=== PATIENT | male | born 1970 | race Caucasian/White ===

== ENCOUNTER 2016-12-31 03:53 | Inpatient (IN) | payer OTHER ==
[2016-06-07 11:56] VITALS: Ht 177.8 cm; Wt 104.3 kg
[~2016-12-31] VITALS: Ht 177.8 cm; Wt 104.3 kg
[2016-12-31 03:53] VITALS: BP 192/107; PULSE 72; RESP 13; TEMP 98.2; O2SAT 99
[~2016-12-31 03:53] MED LIST: AMLO10TA88 PO; FOLI-43 PO; GABA300S PO; LISI-600 PO; VITA1TAB25 PO
--- NOTE | 2016-12-31 03:53 | NUR ---
Placed in room 7 . Placed on manager personnel selection, blood pressure machine and pulse oximeter. To gown for exam. Side rails up. Report given to GERARDO Brennan.
--- NOTE | 2016-12-31 03:55 | NUR ---
Patient AAO x4, sitting in bed, c/o shortness of breath x 1 day and swelling and pain to left arm 01/14. Patient denies N/V/D. Denies chest pain. Patient is a dialysis patient, shunt present on Left arm, thrill and brui present. No acute distress noted. Will continue to monitor.
--- NOTE | 2016-12-31 04:00 | NUR ---
ER Dr. Klein at bedside examining patient.
[2016-12-31] MEDS ORDERED: MORPHINE 2 MG/ML INJ. SYRINGE IVP ONE (04:30)
[2016-12-31 04:32] LABS: BASOPHILS # (AUTO) 0.1 K/uL (0.0-0.2); BASOPHILS % (AUTO) 1.1 % (0.0-2.0); EOSINOPHILS # (AUTO) 0.4 K/uL (0.0-0.4); EOSINOPHILS % (AUTO) 7.2 % (0.0-4.0); HEMATOCRIT 30.3 % (36-54); HEMOGLOBIN 9.9 g/dL (14.0-18.0); LYMPHOCYTES # (AUTO) 0.9 K/uL (1.0-5.5); LYMPHOCYTES % (AUTO) 14.3 % (20.5-51.5); MEAN CORPUSCULAR HEMOGLOBIN 31 pg (27-31); MEAN CORPUSCULAR HGB CONC 33 % (32-36); MEAN CORPUSCULAR VOLUME 95 fL (79.0-98.0); MONOCYTES # (AUTO) 0.5 K/uL (0.0-1.0); MONOCYTES % (AUTO) 8.6 % (1.7-9.3); NEUTROPHILS # (AUTO) 4.1 K/uL (1.8-7.7); NEUTROPHILS % (AUTO) 68.8 % (40.0-70.0); PLATELET COUNT (AUTO) 161 K/uL (130-430); RED BLOOD CELL COUNT(AUTO) 3.19 MIL/uL (4.2-6.2); RED CELL DISTRIBUTION WIDTH 16.2 % (9.0-15.0)
[2016-12-31 04:42] LABS: CALCIUM 8.6 mg/dL (8.4-11.0); POTASSIUM 5.2 mmol/L (3.5-5.1)
[2016-12-31 04:46] LABS: INR 1.1 (0.80-1.20)
[2016-12-31 05:03] LABS: ALBUMIN 2.9 g/dL (3.4-4.8); TOTAL BILIRUBIN 0.5 mg/dL (0.0-1.0); TOTAL PROTEIN, SERUM 7.1 g/dL (6.4-8.3)
--- NOTE | 2016-12-31 05:15 | NUR ---
Patient asked about home medications, unable to identify if medications on medication list is correct stating, "That sounds right, I don't really remember the names." Medication reconciliation list not updated at this time. Md aware.
--- NOTE | 2016-12-31 05:20 | NUR ---
Patient to ultrasound via wheelchair.
--- NOTE | 2016-12-31 05:45 | NUR ---
Consultation Paged (Routine) Reason for consultation: CHF Was consult called: Yes Person who was notified: Marjorie Consulting Physician: Dr Kwong Wet Process Miller Specialty: Billing Representative Ordered By: Dr Swenson
--- NOTE | 2016-12-31 05:50 | NUR ---
PATIENT RETURNED FROM ULTRASOUND.
--- NOTE | 2016-12-31 05:51 | NUR ---
Consultation Paged (Routine) Reason for consultation: CHF Was consult called: Yes Person who was notified: Michael Consulting Physician: Wilfrido Lea; Ann Lea is on-call Pharmacy Sales Assistant Specialty: Nephrology Pharmacy Sales Assistant Ordered By: Dr Swenson
--- NOTE | 2016-12-31 06:05 | NUR ---
Patient will be admitted to care of Dr. Swenson. Admitted to Tele unit. Will go to room 108. Belongings list completed. Summary report printed. Report will be given at bedside.
--- NOTE | 2016-12-31 06:20 | NUR ---
Admission Pt was recvd from ER. a/a/o x4. No s/s of any pain noted. B/P is 192/119,no thing given in ER as per Anu ER nurse. IV noted to R hand G 20, no infiltrate and with good blood return. All extremities are strong and with good blood return. [place] pt to unit and call light. Discussed plan of care with and verbalized understanding.
[2016-12-31 06:22] LABS: BLOOD GAS PH 7.453 (7.350-7.450)
--- NOTE | 2016-12-31 06:22 | NUR ---
Paged paged for Dr Swenson, dialed . picked up call.
[2016-12-31 06:23] LABS: ABG TOTAL HEMOGLOBIN 11.1 G/dL (12.0-18.0); BLOOD GAS BASE EXCESS 3.5 mmol/L (-3.0-3.0); BLOOD GAS COHb% 2.3 % (0.5-1.5); BLOOD GAS HHB 5.9 % (0.0-6.0); BLOOD O2Hb% 91.5 % (94.0-97.0)
[2016-12-31] MEDS ORDERED: cloNIDine HCL 0.1 MG TABLET PO PRN (06:30)
[2016-12-31] MEDS ORDERED: cloNIDine HCL 0.1 MG TABLET ONE (06:38)
[2016-12-31] MEDS ORDERED: MORPHINE 2 MG/ML INJ. SYRINGE IVP PRN (06:45)
[2016-12-31] MEDS ORDERED: ZOLPIDEM TARTRATE 5 MG TABLET PO PRN (06:45)
[2016-12-31] MEDS ORDERED: ONDANSETRON HCL 4 MG/2 ML VIAL IVP PRN (06:45)
[2016-12-31] MEDS ORDERED: LORazepam 2 MG/ML VIAL IVP PRN (06:45)
[2016-12-31] MEDS ORDERED: ACETAMINOPHEN 325 MG TABLET PO PRN (06:45)
[2016-12-31] MEDS ORDERED: MAGNESIUM SULFATE 50 ML IV PRN (06:45)
[2016-12-31] MEDS ORDERED: POTASSIUM CHLORIDE 10 MEQ TAB.PRT.SR PO PRN (06:45)
[2016-12-31] MEDS ORDERED: DOCUSATE SODIUM 100 MG CAPSULE PO PRN (06:45)
[2016-12-31 08:30] VITALS: BP 173/107; PULSE 74; RESP 18; TEMP 97.3; O2SAT 96
--- NOTE | 2016-12-31 08:51 | NUR ---
GOT A CALL FROM THE INSURANCE AND WAS INFORMED THAT PT IS OUT OF NETWORK. REQUESTED THAT DR QUIROGA, THE ATTENDING MD SHOULD CALL [facility] FOR PLACEMENT. SPOKE TO SHERRY
[2016-12-31] MEDS ORDERED: FOLIC ACID 1 MG TABLET PO SCH (09:00)
[2016-12-31] MEDS ORDERED: amLODIPine BESYLATE 10 MG TABLET PO SCH (09:00)
[2016-12-31] MEDS ORDERED: HEPARIN SODIUM,PORCINE 5000 UNITS/ML VIAL SUBCUT SCH (09:00)
[2016-12-31] MEDS: LISINOPRIL 20 MG TABLET PO SCH ×2 (09:17→09:22)
--- NOTE | 2016-12-31 10:30 | NUR ---
Call from Doctor Nikita to round and decide for dialysis today versus another day for dialysis.
[2016-12-31] MEDS ORDERED: CARVEDILOL 6.25 MG TABLET (COREG) PO ONE (11:30)
[2016-12-31 11:48] VITALS: BP 164/108; PULSE 62
--- NOTE | 2016-12-31 12:07 | NUR ---
Rounds to patient. Given scheduled med for blood pressure 157 / 108. Patient improving systolic blood pressure.
[2016-12-31 14:18] VITALS: BP 143/92; PULSE 65
--- NOTE | 2016-12-31 14:19 | NUR ---
Recheck on patient blood pressure. 143/92. Patient says arm feels like its not in use and therefore he is having swelling. Shoulder appears weak in the joint with movement.
[2016-12-31 15:05] VITALS: BP 155/102; PULSE 64; RESP 16; TEMP 97.7; O2SAT 95
--- NOTE | 2016-12-31 15:59 | NUR ---
D/C Patient Patient given medication reconciliation form and D/C instructions. Exit Care provided. Patient verbalized understanding. MD discussed with patient the results and treatment provided. Ambulatory with steady gait for discharge to home. Patient in stable condition, ID band removed. IV catheter removed, intact and dressing applied, no active bleeding. Rx reconciliation given. Patient educated on pain management. All belongings sent with patient. Patient given xray for follow up with primary md regarding shoulder.
[2016-12-31] MEDS ORDERED: GABAPENTIN 300 MG CAPSULE PO SCH (21:00)
[2016-12-31] MEDS ORDERED: CARVEDILOL 6.25 MG TABLET (COREG) PO SCH (21:00)
--- NOTE | 2017-01-04 16:12 | NUR ---
Discharge Follow Up Phone Call: [facility] called and spoke with pt ([phone]). Pt states that he is doing well; there are no questions regarding discharge or medication instructions; pt has been going to dialysis; pt has a PCP follow up appointment scheduled for next week. Pt did not express any other needs or concerns and denied the need for additional follow up at this time. No further follow up phone calls required at this time.
== END 2016-12-31 16:08 | disposition home or self-care (01) | DRG 291 ==
LOC: SED 03:53 → STU 05:31
PROVIDERS: ADMIT General Practice; ATTEND General Practice
DX: I13.2 Hypertensive heart and chronic kidney disease with heart failure and with stage 5 chronic kidney disease, or end stage renal disease (principal); N17.0 Acute kidney failure with tubular necrosis; I50.43 Acute on chronic combined systolic (congestive) and diastolic (congestive) heart failure; N18.6 End stage renal disease; E46 Unspecified protein-calorie malnutrition; R18.8 Other ascites; Z99.2 Dependence on renal dialysis; F17.210 Nicotine dependence, cigarettes, uncomplicated; D63.8 Anemia in other chronic diseases classified elsewhere; E78.5 Hyperlipidemia, unspecified; E66.9 Obesity, unspecified; E87.5 Hyperkalemia; S43.402A Unspecified sprain of left shoulder joint, initial encounter; X58.XXXA Exposure to other specified factors, initial encounter; Y93.89 Activity, other specified; Y92.89 Other specified places as the place of occurrence of the external cause; Y99.8 Other external cause status; Z79.899 Other long term (current) drug therapy; Z68.33 Body mass index [BMI] 33.0-33.9, adult
CPT/HCPCS: 36415; 36600; 71010; 72040-TC; 73030; 80053; 82803-TC; 83880; 84484; 85025; 85379; 85610-TC; 87081; 93005; 93971; 96374; 99285; J1644; J2270

== ENCOUNTER 2017-02-02 00:49 | Emergency (ER) | payer OTHER ==
[~2017-02-02] VITALS: Ht 177.8 cm; Wt 99.8 kg
[2017-02-02 01:00] VITALS: BP_SYST 199
[2017-02-02] MEDS ORDERED: hydrALAZINE HCL 20 MG/ML VIAL IVP ONE ×2 (02:00→03:45)
[2017-02-02 03:27] LABS: BASOPHILS % (AUTO) 0.9 % (0.0-2.0); EOSINOPHILS # (AUTO) 0.5 K/uL (0.0-0.4); EOSINOPHILS % (AUTO) 8.8 % (0.0-4.0); HEMATOCRIT 31.3 % (36-54); HEMOGLOBIN 10.3 g/dL (14.0-18.0); LYMPHOCYTES # (AUTO) 0.8 K/uL (1.0-5.5); LYMPHOCYTES % (AUTO) 14.3 % (20.5-51.5); MEAN CORPUSCULAR HEMOGLOBIN 31 pg (27-31); MEAN CORPUSCULAR HGB CONC 33 % (32-36); MEAN CORPUSCULAR VOLUME 95 fL (79.0-98.0); MONOCYTES # (AUTO) 0.4 K/uL (0.0-1.0); NEUTROPHILS # (AUTO) 3.6 K/uL (1.8-7.7); PLATELET COUNT (AUTO) 183 K/uL (130-430); RED CELL DISTRIBUTION WIDTH 15.1 % (9.0-15.0); WHITE BLOOD COUNT (AUTO) 5.4 K/uL (4.8-10.8)
[2017-02-02 03:30] LABS: CREATININE 7.03 mg/dL (0.55-1.30); POTASSIUM 4.8 mmol/L (3.5-5.1)
[2017-02-02 03:35] LABS: ALBUMIN 2.8 g/dL (3.4-4.8); INR 1.1 (0.80-1.20); PROTHROMBIN TIME 11.9 SECS (9.5-12.5); TOTAL BILIRUBIN 0.6 mg/dL (0.0-1.0); TOTAL PROTEIN, SERUM 7.5 g/dL (6.4-8.3)
[2017-02-02] MEDS ORDERED: cloNIDine HCL 0.1 MG TABLET PO ONE (03:45)
[2017-02-02 04:43] VITALS: BP_SYST 175
== END 2017-02-02 04:43 | disposition left against medical advice (07) ==
LOC: SED 00:49
DX: R60.0 Localized edema (principal); N18.6 End stage renal disease
CPT/HCPCS: 36415; 71010; 80053; 85025; 85610; 85730; 93971; 96374; 96376; 99285; J0360

== ENCOUNTER 2017-07-19 13:24 | Inpatient (IN) | payer OTHER ==
[~2017-07-19] VITALS: Ht 177.8 cm; Wt 97.5 kg
[2017-07-19 13:25] VITALS: BP_SYST 99
[2017-07-19 14:42] LABS: BASOPHILS % (AUTO) 0.9 % (0.0-2.0); EOSINOPHILS # (AUTO) 0.1 K/uL (0.0-0.4); EOSINOPHILS % (AUTO) 2.7 % (0.0-4.0); HEMATOCRIT 36.7 % (36-54); HEMOGLOBIN 12.1 g/dL (14.0-18.0); LYMPHOCYTES # (AUTO) 0.9 K/uL (1.0-5.5); LYMPHOCYTES % (AUTO) 16.6 % (20.5-51.5); MEAN CORPUSCULAR HEMOGLOBIN 31 pg (27-31); MEAN CORPUSCULAR HGB CONC 33 % (32-36); MEAN CORPUSCULAR VOLUME 93 fL (79.0-98.0); MONOCYTES # (AUTO) 0.6 K/uL (0.0-1.0); MONOCYTES % (AUTO) 11.8 % (1.7-9.3); NEUTROPHILS # (AUTO) 3.6 K/uL (1.8-7.7); PLATELET COUNT (AUTO) 167 K/uL (130-430); RED BLOOD CELL COUNT(AUTO) 3.93 MIL/uL (4.2-6.2); RED CELL DISTRIBUTION WIDTH 16.4 % (9.0-15.0); WHITE BLOOD COUNT (AUTO) 5.2 K/uL (4.8-10.8)
[2017-07-19] MEDS ORDERED: HYDROcodone/ACETAMIN 10-325 MG TAB PO ONE (14:45)
[2017-07-19 15:01] LABS: CALCIUM 8.7 mg/dL (8.4-11.0); POTASSIUM 5.3 mmol/L (3.5-5.1)
[2017-07-19 15:06] LABS: ALBUMIN 2.4 g/dL (3.4-4.8); INR 1.1 (0.80-1.20); PROTHROMBIN TIME 11.1 SECS (9.5-12.5); TOTAL BILIRUBIN 0.3 mg/dL (0.0-1.0)
[2017-07-19 15:17] LABS: CREATININE 8.54 mg/dL (0.55-1.30)
[2017-07-19] MEDS ORDERED: ASPIRIN 81 MG TAB.CHEW PO ONE (16:45)
[2017-07-19] MEDS ORDERED: NITROGLYCERIN 1 INCH (GM) OINT. TP ONE (16:45)
[2017-07-19] MEDS ORDERED: NITROGLYCERIN 0.4 MG TAB.SUBL SL ONE (16:45)
[2017-07-19 18:04] VITALS: BP_SYST 109
[2017-07-19] MEDS ORDERED: MAGNESIUM SULFATE 50 ML IV PRN (18:30)
[2017-07-19] MEDS ORDERED: ZOLPIDEM TARTRATE 5 MG TABLET PO PRN (18:30)
[2017-07-19] MEDS ORDERED: POTASSIUM CHLORIDE 20 MEQ TAB.PRT.SR PO PRN (18:30)
[2017-07-19] MEDS ORDERED: ACETAMINOPHEN 325 MG TABLET PO PRN (18:30)
[2017-07-19] MEDS ORDERED: MUPIROCIN 2% TOPICAL OINTMENT 22 GM NS PRN (18:30)
[2017-07-19] MEDS ORDERED: MORPHINE 2 MG/ML INJ. SYRINGE IVP PRN (18:30)
[2017-07-19] MEDS ORDERED: ONDANSETRON HCL 4 MG/2 ML VIAL IVP PRN (18:30)
[2017-07-19] MEDS ORDERED: DOCUSATE SODIUM 100 MG CAPSULE PO PRN (18:30)
[2017-07-19] MEDS ORDERED: LORazepam 2 MG/ML VIAL IVP PRN (18:30)
[2017-07-19] MEDS ORDERED: HEPARIN SODIUM,PORCINE 5000 UNITS/ML VIAL SUBCUT ONE (19:00)
[2017-07-19] MEDS ORDERED: HEPARIN SODIUM,PORCINE 3000 UNITS/0.6 ML BOLUS IVP PRN (19:15)
[2017-07-19] MEDS ORDERED: HEPARIN SODIUM,PORCINE 2000 UNITS/0.4 ML BOLUS IVP PRN (19:15)
[2017-07-19] MEDS ORDERED: HEPARIN SODIUM,PORCINE 5000 UNITS/ML VIAL IVP ONE (19:15)
[2017-07-19] MEDS: MORPHINE 2 MG/ML INJ. SYRINGE IVP PRN (20:24)
[2017-07-19] MEDS: HEPARIN 25,000 UNITS/D5W 250ML 250 ML IV PRN (20:37)
[2017-07-19 20:42] VITALS: BP_SYST 96
[2017-07-19 21:00] VITALS: BP_SYST 92
[2017-07-19] MEDS: GABAPENTIN 300 MG CAPSULE PO SCH (21:51)
[2017-07-19 22:00] VITALS: BP_SYST 104
[2017-07-19 23:00] VITALS: BP_SYST 103
[2017-07-20] VITALS (24 sets, daily range): BP systolic 80–123
[2017-07-20] MEDS: MORPHINE 2 MG/ML INJ. SYRINGE IVP PRN ×5 (03:15→23:06)
[2017-07-20 07:08] LABS: BASOPHILS # (AUTO) 0.1 K/uL (0.0-0.2); BASOPHILS % (AUTO) 1.6 % (0.0-2.0); EOSINOPHILS # (AUTO) 0.2 K/uL (0.0-0.4); EOSINOPHILS % (AUTO) 4.1 % (0.0-4.0); HEMATOCRIT 38.3 % (36-54); HEMOGLOBIN 12.5 g/dL (14.0-18.0); LYMPHOCYTES # (AUTO) 1.2 K/uL (1.0-5.5); LYMPHOCYTES % (AUTO) 22.5 % (20.5-51.5); MEAN CORPUSCULAR HEMOGLOBIN 30 pg (27-31); MEAN CORPUSCULAR HGB CONC 33 % (32-36); MEAN CORPUSCULAR VOLUME 93 fL (79.0-98.0); MONOCYTES # (AUTO) 0.5 K/uL (0.0-1.0); MONOCYTES % (AUTO) 9.7 % (1.7-9.3); NEUTROPHILS # (AUTO) 3.2 K/uL (1.8-7.7); NEUTROPHILS % (AUTO) 62.1 % (40.0-70.0); PLATELET COUNT (AUTO) 189 K/uL (130-430); RED BLOOD CELL COUNT(AUTO) 4.12 MIL/uL (4.2-6.2); RED CELL DISTRIBUTION WIDTH 16.6 % (9.0-15.0); WHITE BLOOD COUNT (AUTO) 5.2 K/uL (4.8-10.8)
[2017-07-20 07:21] LABS: CALCIUM 8.5 mg/dL (8.4-11.0)
[2017-07-20 07:36] LABS: CREATININE 9.59 mg/dL (0.55-1.30); POTASSIUM 5.9 mmol/L (3.5-5.1)
[2017-07-20] MEDS ORDERED: ATORVASTATIN 20 MG TABLET PO ONE (15:15)
[2017-07-20] MEDS ORDERED: ASPIRIN 81 MG TABLET(ECOTRIN) PO ONE (15:30)
[2017-07-20] MEDS: HEPARIN 25,000 UNITS/D5W 250ML 250 ML IV PRN (16:19)
[2017-07-20] MEDS ORDERED: SODIUM POLYSTYRENE SULFONATE 15 GM/60 ML UDBTL PO ONE (17:45)
[2017-07-20] MEDS: GABAPENTIN 300 MG CAPSULE PO SCH (21:14)
[2017-07-20 23:17] LABS: CHOLESTEROL 169 mg/dL (<200); HDL CHOLESTEROL 44 mg/dL (>45); LDL CHOLESTEROL 111 mg/dL (<100); TRIGLYCERIDES 71 mg/dL (30-150)
[2017-07-21] VITALS (9 sets, daily range): BP systolic 89–107
[2017-07-21] MEDS: MORPHINE 2 MG/ML INJ. SYRINGE IVP PRN (04:17)
[2017-07-21 06:27] LABS: BASOPHILS # (AUTO) 0.1 K/uL (0.0-0.2); BASOPHILS % (AUTO) 1.5 % (0.0-2.0); EOSINOPHILS # (AUTO) 0.2 K/uL (0.0-0.4); EOSINOPHILS % (AUTO) 4.6 % (0.0-4.0); HEMATOCRIT 35.9 % (36-54); HEMOGLOBIN 12.1 g/dL (14.0-18.0); LYMPHOCYTES # (AUTO) 1.3 K/uL (1.0-5.5); LYMPHOCYTES % (AUTO) 25.7 % (20.5-51.5); MEAN CORPUSCULAR HEMOGLOBIN 31 pg (27-31); MEAN CORPUSCULAR HGB CONC 34 % (32-36); MEAN CORPUSCULAR VOLUME 92 fL (79.0-98.0); MONOCYTES # (AUTO) 0.6 K/uL (0.0-1.0); NEUTROPHILS % (AUTO) 57.2 % (40.0-70.0); PLATELET COUNT (AUTO) 184 K/uL (130-430); RED BLOOD CELL COUNT(AUTO) 3.93 MIL/uL (4.2-6.2); RED CELL DISTRIBUTION WIDTH 16.5 % (9.0-15.0); WHITE BLOOD COUNT (AUTO) 5.2 K/uL (4.8-10.8)
[2017-07-21 06:36] LABS: CALCIUM 8.4 mg/dL (8.4-11.0); CREATININE 7.16 mg/dL (0.55-1.30); POTASSIUM 4.1 mmol/L (3.5-5.1)
[2017-07-21] MEDS ORDERED: ASPIRIN 81 MG TABLET(ECOTRIN) PO SCH (09:00)
[2017-07-21] MEDS ORDERED: ATORVASTATIN 20 MG TABLET PO SCH (09:00)
== END 2017-07-21 09:05 | disposition short-term general hospital (02) | DRG 280 ==
LOC: SED 13:24 → STU 17:29 → SIC 19:53
PROVIDERS: ADMIT General Practice; ATTEND General Practice
PROC: 0W9G3ZZ Drainage of Peritoneal Cavity, Percutaneous Approach (ICD-10-PCS; principal; 2017-07-20)
PROC: 5A1D70Z Performance of Urinary Filtration, Intermittent, Less than 6 Hours Per Day (ICD-10-PCS; 2017-07-20)
DX: I21.4 Non-ST elevation (NSTEMI) myocardial infarction (principal); N18.6 End stage renal disease; N17.0 Acute kidney failure with tubular necrosis; R18.8 Other ascites; E44.0 Moderate protein-calorie malnutrition; E87.5 Hyperkalemia; I12.0 Hypertensive chronic kidney disease with stage 5 chronic kidney disease or end stage renal disease; N25.81 Secondary hyperparathyroidism of renal origin; F17.210 Nicotine dependence, cigarettes, uncomplicated; Z60.2 Problems related to living alone; F12.90 Cannabis use, unspecified, uncomplicated; I24.9 Acute ischemic heart disease, unspecified; Z68.30 Body mass index [BMI] 30.0-30.9, adult; Z79.899 Other long term (current) drug therapy; Z99.2 Dependence on renal dialysis; Z56.0 Unemployment, unspecified
CPT/HCPCS: 36415; 49083; 71010; 76700-TC; 80048; 80053; 80061; 83735-TC; 84484; 85025; 85610-TC; 85730-TC; 87081; 90935; 93005; 93306; 99285; C1729; J1644; J2270